=== PATIENT | female | born 1975 | race Caucasian/White ===

== ENCOUNTER 2025-09-27 10:39 | Emergency (ER) | payer BC ==
[~2025-09-27] VITALS: Ht 167.6 cm; Wt 66.2 kg
[2025-09-27 10:59] VITALS: BP 132/89; TEMP 97.8; O2SAT 98
[2025-09-27] MEDS ORDERED: ACYC-108 PO (12:18)
[2025-09-27] MEDS ORDERED: METR-147 PO (12:18)
[2025-09-27] MEDS ORDERED: PENICILLIN G BENZATHINE 2.4 MMU/4 ML ML IM ONE (12:23)
[2025-09-27] MEDS: PENICILLIN G BENZATHINE 2.4 MMU/4 ML ML IM ONE (12:27)
== END 2025-09-27 12:31 | disposition home or self-care (01) ==
LOC: ER 11:07
DX: A53.9 Syphilis, unspecified (principal); B00.9 Herpesviral infection, unspecified; A59.9 Trichomoniasis, unspecified; Z88.5 Allergy status to narcotic agent; Z90.89 Acquired absence of other organs
CPT/HCPCS: 99283; 96372; J0558